=== PATIENT | male | born 1970 | race Caucasian/White ===

== ENCOUNTER 2024-07-31 23:59 | Emergency (ER) | payer BC, SELFPAY ==
[2024-08-01] VITALS: BP 170/100
[2024-08-01 00:39] LABS: ALT (SGPT) 22 U/L (0-50); AST (SGOT) 24 U/L (17-59); Alkaline Phosphatase 118 U/L (38-126); Blood Urea Nitrogen 16 mg/dl (9-20); Calcium 8.2 mg/dl (8.4-10.2); Carbon Dioxide 28 mmol/L (22-30); Chloride 99 mmol/L (98-107); Glucose 111 mg/dl (70-99); Potassium 4.2 mmol/L (3.5-5.1); Sodium 136 mmol/L (135-145); Total Bilirubin 0.3 mg/dl (0.2-1.3); Total Protein 6.8 g/dl (6.3-8.2); eGFR > 60.00
[2024-08-01 00:43] LABS: % Basophils 1.1 % (0-2); % Immature Granulocytes 0.9 % (0-0.5); % Lymphocytes 26.3 % (20.5-51.1); % Monocytes 10.7 % (1.7-9.3); Absolute Basophils 0.1 10^3/uL (0-0.2); Absolute Eosinophils 0.3 10^3/uL (0-0.7); Absolute Immature Granulocytes 0.1 10^3/uL (0-0.05); Absolute Lymphocytes 1.5 10^3/uL (1.2-3.4); Absolute Monocytes 0.6 10^3/uL (0.1-0.6); Mean Corp Hgb Conc. 31.4 g/dL (33.0-37.0); Mean Corpuscular Hgb 23.5 pg (27.0-31.0); Mean Corpuscular Volume 74.8 fL (80.0-94.0); Mean Platelet Volume 10.7 fL (7.4-10.4); Nucleated Red Blood Cells % 0 % (-); Platelet Count 206 10^3/uL (130-400); Red Blood Cell Count 4.68 10^6/uL (4.70-6.10); Red Cell Dist. Width 16.9 % (11.5-14.5); White Blood Cell Count 5.5 10^3/uL (4.8-10.8)
--- NOTE | 2024-08-01 01:54 | ED.GENMED ---
History of Present Illness
General
Chief Complaint: Flank Pain
Source: patient
Exam Limitations: none
Time Seen by Provider: 08/01/24 01:45
Nursing documentation reviewed up to this point in time: agreed with
History of Present Illness
History of Present Illness:
Patient with history of kidney stones, presents to ED secondary to recurrent left flank/back pain with nausea sensation, earlier this evening. Upon arrival to ED, while waiting in the waiting room, patient states that his pain has resolved
completely. In the past, patient has required procedures, secondary to ongoing pain along with signs of kidney stone. Denies fever or chills. Denies trauma. Denies difficulty with urination. Patient's last episode of kidney stones was
approximately 2 years ago.
Past History
Past History
ED Past Medical History: Asthma and Other (varicella, GI bleed. Kidney stones); Negative HTN, Hypercholesterolemia or NIDDM
ED Past Surgical History: Cholecystectomy and Other (Gastric bypass)
Patient has exhibited threatening behavior?: No
Social History
Tobacco: Non-smoker
Alcohol: Occasional
Drug: None
Personal:
Living: with family
Employment: Employed
Family History
Family History: Hypertension; Negative CAD
Review of Systems
Review of Systems
Allergies reviewed?: Yes
All Other Systems: ROS reviewed and negative except as documented in HPI and ROS
Constitutional: Reports no symptoms; Denies fever or chills
ABD/GI: Reports no symptoms
: Reports flank pain
Musculoskeletal: Reports back pain
Skin: Reports no symptoms
Neurological: Reports no symptoms
Phy Exam
Physical Exam
Physical Exam:
Physical Exam
General: no apparent distress, not acutely ill. afebrile
Head: nc/at. eomi
Neck: supple. normal range of motion.
Abdomen: normal bowel sounds. not tender.
Neuro: alert and oriented. no focal neurological deficits
Skin: no rash
Psychiatric: well kept. interactive and cooperative
Extremities: no edema. no calf tenderness.
Course
Orders/Labs/Results
Orders:
Orders
08/01/24 00:14
Complete Blood Count/With Diff Urgent
Comprehensive Metabolic Panel Urgent
Abnormal Lab Results
08/01/24
00:14
RBC 4.68 L 10^6/uL
(4.70-6.10)
Hgb 11.0 L g/dL
(13.0-18.0)
Hct 35.0 L %
(39.0-52.0)
MCV 74.8 L fL
(80.0-94.0)
MCH 23.5 L pg
(27.0-31.0)
MCHC 31.4 L g/dL
(33.0-37.0)
RDW 16.9 H %
(11.5-14.5)
MPV 10.7 H fL
(7.4-10.4)
Abs Immat Gran (auto) 0.1 H 10^3/uL
(0-0.05)
Immature Gran % 0.9 H %
(0-0.5)
Monocytes % 10.7 H %
(1.7-9.3)
Glucose 111 H mg/dl
(70-99)
Calcium 8.2 L mg/dl
(8.4-10.2)
08/01/24 00:14
08/01/24 00:14
Vital Signs
Initial and Last Documented VS:
Initial Vital Signs
Temp Pulse Resp BP Pulse Ox
98.8 F 74 22 170/100 100
08/01/24 00:00 08/01/24 00:00 08/01/24 00:00 08/01/24 00:00 08/01/24 00:00
Last Documented Vital Signs
Temp Pulse Resp BP Pulse Ox
98.8 F 74 22 170/100 100
08/01/24 00:00 08/01/24 00:00 08/01/24 00:00 08/01/24 00:00 08/01/24 00:00
MDM/Problems Addressed
MDM/Problems Addressed:
History and exam concerning for renal colic. Unfortunately while waiting for CT scan, pt informed nursing staff that he was going home, as he did not wish to wait any longer, evleia with resolution of pain. Pt told nursing staff that he will return, if
pain comes back.
*Critical Care Note
Total Time (30-74mins, 75-104mins- exclusive of procedures): Not Applicable
ED Attending Note
-
Portions of this chart may have been created with voice recognition software.� Occasional wrong word or��sound alike� substitutions may have occurred due to the inherent limitations of voice recognition software.
Discharge Plan
Departure
Patient Disposition: Elopement
Date of Disposition: 08/01/24
Time of Disposition: 02:46
Discharge Problem:
Renal colic
Prescriptions:
No Action
albuterol sulfate 1 PUFF HFA aerosol inhaler
2 puff inhalation R Q4HPRN PRN (Reason: sob)
diphenhydramine HCl [Banophen] 25 MG capsule
50 mg PO HSPRN PRN (Reason: insomnia)
oxycodone 5 MG tablet
5 mg PO Q4HPRN PRN (Reason: flank pain) 5 Days Qty: 15 0RF
ondansetron 8 mg tablet,disintegrating
8 mg PO TID PRN (Reason: nausea and vomiting) Qty: 20 0RF
tamsulosin 0.4 mg capsule
0.4 mg PO DAILY Qty: 14 0RF
phenazopyridine 200 mg Tablet
200 mg PO TIDPRN PRN (Reason: dysuria) Qty: 20 0RF
oxycodone 5 mg capsule
5 mg PO Q4H PRN (Reason: pain) Qty: 20 0RF
Interventions
Interventions:
*Risk Screen - Suicide Last Done: 08/01/24 00:00
*General Assessment Last Done: 08/01/24 01:50
*Neglect/Abuse Screening Last Done: 08/01/24 00:00
ED- Fall Risk Assessment Last Done: 08/01/24 01:50
*ED COVID-19 Vaccine History Last Done: 08/01/24 01:50
*Nursing Disposition Last Done: 08/01/24 02:30
DR-Hinsac-Dyqlrhgtnb Assessment Last Done: 08/01/24 01:50
ED-Male Genitourinary Assessment Last Done: 08/01/24 01:50
Discharge Date and Time
Discharge Date/Time: 08/01/24 02:30
Print Language: [place]EN[place]
== END 2024-08-01 02:30 | disposition left against medical advice (07) ==
LOC: EMR 23:59
PROVIDERS: Student in an Organized Health Care Education/Training Program; EMERGENCY PHYSICIAN Emergency Medicine
DX: N23 Unspecified renal colic (principal); R10.9 Unspecified abdominal pain; R11.0 Nausea; Z53.29 Procedure and treatment not carried out because of patient's decision for other reasons; J45.909 Unspecified asthma, uncomplicated; Z87.442 Personal history of urinary calculi; Z90.49 Acquired absence of other specified parts of digestive tract; Z98.84 Bariatric surgery status; Z88.6 Allergy status to analgesic agent
CPT/HCPCS: 99283; 80053; 85025

== ENCOUNTER 2024-09-09 16:17 | Emergency (ER) | payer OTHER, SELFPAY ==
[2024-09-09 16:17] VITALS: BMI 34.1
[2024-09-09 17:00] LABS: % Basophils 0.6 % (0-2); % Eosinophils 0.6 % (0-6); % Immature Granulocytes 0.2 % (0-0.5); % Lymphocytes 9.4 % (20.5-51.1); % Monocytes 15.4 % (1.7-9.3); % Neutrophils 73.8 % (42.2-75.2); Absolute Lymphocytes 0.5 10^3/uL (1.2-3.4); Absolute Monocytes 0.8 10^3/uL (0.1-0.6); Hematocrit 32.9 % (39.0-52.0); Hemoglobin 10.2 g/dL (13.0-18.0); Mean Corpuscular Hgb 23.1 pg (27.0-31.0); Mean Corpuscular Volume 74.4 fL (80.0-94.0); Mean Platelet Volume 10.4 fL (7.4-10.4); Nucleated Red Blood Cells % 0 % (-); Platelet Count 184 10^3/uL (130-400); Red Blood Cell Count 4.42 10^6/uL (4.70-6.10); Red Cell Dist. Width 16.5 % (11.5-14.5); White Blood Cell Count 5.3 10^3/uL (4.8-10.8)
--- NOTE | 2024-09-09 17:09 | EDRN ---
Pts out to nurses station yelling 'he can't breathe'. This RN arrived to bedside where pt was in no acute distress, speaking full sentences and telling this RN a story about how a few years ago he was having a hard time breathing and the only
medication that healed him was toradol. Pts vitals are stable and pt maintaining upright seated position independently. at bedside. Awaiting provider for evaluation.
[2024-09-09 17:12] VITALS: BP 159/84
[2024-09-09 17:26] LABS: Troponin I 0.027 ng/ml
[2024-09-09 17:28] LABS: ALT (SGPT) 22 U/L (0-50); AST (SGOT) 27 U/L (17-59); Alkaline Phosphatase 112 U/L (38-126); Blood Urea Nitrogen 13 mg/dl (9-20); Calcium 7.9 mg/dl (8.4-10.2); Carbon Dioxide 26 mmol/L (22-30); Chloride 99 mmol/L (98-107); Estimated Creatinine Clearance 107 ml/min; Glucose 127 mg/dl (70-99); Potassium 3.9 mmol/L (3.5-5.1); Sodium 133 mmol/L (135-145); Total Bilirubin 0.6 mg/dl (0.2-1.3); Total Protein 6.5 g/dl (6.3-8.2); eGFR > 60.00
[2024-09-09 17:28] LABS: COVID-19 Antigen Negative (Negative)
[2024-09-09] MEDS: NORCO 5/325 1 TABLET PO (17:41)
[2024-09-09] MEDS: DUONEB 3 ML INH (17:41)
[2024-09-09 18:00] VITALS: BP 138/69
--- NOTE | 2024-09-09 18:09 | EDRN ---
Post breathing treatment pt states he feels 'so much better'
--- NOTE | 2024-09-09 18:40 | ED.GENMED ---
History of Present Illness
General
Chief Complaint: Cold/Flu/URI Symptoms
Source: patient
Exam Limitations: none
Time Seen by Provider: 09/09/24 17:17
Nursing documentation reviewed up to this point in time: agreed with
History of Present Illness
History of Present Illness:
Patient to ED with complaint of flu like symptoms. COmplains of SOB, cough, chest pain when coughing, fever. Symptoms started yesterday afternoon. Brought to ED by spouse for dennise.
Past History
Past History
ED Past Medical History: Asthma and Other (varicella, GI bleed. Kidney stones); Negative HTN, Hypercholesterolemia or NIDDM
ED Past Surgical History: Cholecystectomy and Other (Gastric bypass)
Patient has exhibited threatening behavior?: No
Social History
Tobacco: Non-smoker
Alcohol: Occasional
Drug: None
Personal:
Living: with family
Employment: Employed
Family History
Family History: Hypertension; Negative CAD
Review of Systems
Review of Systems
Allergies reviewed?: Yes
All Other Systems: ROS reviewed and negative except as documented in HPI and ROS
Constitutional: Reports fever and fatigue
EENT: Reports no symptoms
Respiratory: Reports cough and trouble breathing
Cardiac: Reports no symptoms
ABD/GI: Reports no symptoms
: Reports no symptoms
Musculoskeletal: Reports no symptoms
Skin: Reports no symptoms
Neurological: Reports no symptoms
Psychiatric: Reports no symptoms
Phy Exam
General Physical Exam
General Presentation: well appearing and mild distress
General age: appears stated age
General Skin: warm and dry
General Habitus: normal
General Mental: alert
General Hydration: appears well hydrated
Cardiovascular Exam
Cardiovascular Exam: regular rate/rhythm and no edema
Pulmonary Exam
Pulmonary Exam: lungs clear and no respiratory distress
Gastrointestinal Exam
Gastrointestinal Exam: non tender and soft
Musculoskeletal Exam
Musculoskeletal Exam: full ROM and neuro vasc intact
Skin Exam
Skin Exam: normal color, warm/dry and no rash
Psychiatric Exam
Psychiatric Exam: normal mood/affect
Course
Orders/Labs/Results
Orders:
Orders
09/09/24 16:21
EKG [Electrocardiogram (*1)] Urgent
Reason for Study: Shortness of Breath
CR Chest - 2 Views Urgent
Comment:
Reason For Exam: SOB
09/09/24 16:22
EKG- Treatment ONCE
09/09/24 16:37
Complete Blood Count/With Diff Urgent
Comprehensive Metabolic Panel Urgent
Troponin I Urgent
09/09/24 16:38
COVID-19 Antigen Urgent
Source: Nasal Swab
Influenza A+B Rapid Molecular Urgent
JEFF Source: Nasal Swab
Specimen Description:
09/09/24 17:36
Hydrocodone 5/APAP 325 [[place] 5/325] 1 tablet PO NOW STA
Ipratropium/Albuterol Sulfate [Duoneb] 3 ml INH R NOW STA
09/09/24 18:36
Oseltamivir Phosphate [Tamiflu] 75 mg PO NOW STA
Abnormal Lab Results
09/09/24
16:37
RBC 4.42 L 10^6/uL
(4.70-6.10)
Hgb 10.2 L g/dL
(13.0-18.0)
Hct 32.9 L %
(39.0-52.0)
MCV 74.4 L fL
(80.0-94.0)
MCH 23.1 L pg
(27.0-31.0)
MCHC 31.0 L g/dL
(33.0-37.0)
RDW 16.5 H %
(11.5-14.5)
Absolute Lymphs (auto) 0.5 L 10^3/uL
(1.2-3.4)
Absolute Monos (auto) 0.8 H 10^3/uL
(0.1-0.6)
Lymphocytes % 9.4 L %
(20.5-51.1)
Monocytes % 15.4 H %
(1.7-9.3)
Sodium 133 L mmol/L
(135-145)
Glucose 127 H mg/dl
(70-99)
Calcium 7.9 L mg/dl
(8.4-10.2)
09/09/24 16:37
09/09/24 16:37
Vital Signs
Initial and Last Documented VS:
Initial Vital Signs
Temp Pulse Resp Pulse Ox
100.1 F 101 19 97
09/09/24 16:19 09/09/24 16:19 09/09/24 16:19 09/09/24 16:19
Last Documented Vital Signs
Temp Pulse Resp BP Pulse Ox
98.4 F 77 16 138/69 99
09/09/24 18:00 09/09/24 18:00 09/09/24 18:38 09/09/24 18:00 09/09/24 18:38
*Radiology
Radiology exam reviewed: radiology read reviewed
*Pulse Oximetry
Patient hypoxic: no
*Critical Care Note
Total Time (30-74mins, 75-104mins- exclusive of procedures): Not Applicable
Update Note
Update Note:
Patient to ED with complaint of flu like symptoms x 24 hours. Influenza A pos. Discussed tamiflu with him and he would prefer to take. Given first dose in ED. VSS, afebrile, LCTA. Given duoneb in ED for complaint of SOB and reports improvement
in his symptoms. Will give rx for albuterol MDI prn. He is discharged home and will follow up with PCP.
ED Attending Note
-
Portions of this chart may have been created with voice recognition software.� Occasional wrong word or��sound alike� substitutions may have occurred due to the inherent limitations of voice recognition software.
Discharge Plan
Departure
Patient Disposition: Home (Routine Discharge)
Date of Disposition: 09/09/24
Time of Disposition: 18:36
Patient with high blood pressure during this ER visit?: No
Condition: Good
Covid-19: Not Applicable
Discharge Problem:
Influenza
Instructions: Fever, Adult (DC), Viral Syndrome (DC), Flu in adults - Discharge instructions
Prescriptions:
New
albuterol sulfate 90 mcg/actuation HFA aerosol inhaler
2 puff inhalation QID PRN (Reason: shortness of breath or wheezing) Qty: 8.5 0RF
oseltamivir [Tamiflu] 75 mg capsule
75 mg PO BID 5 Days Qty: 10 0RF
No Action
albuterol sulfate 1 PUFF HFA aerosol inhaler
2 puff inhalation R Q4HPRN PRN (Reason: sob)
diphenhydramine HCl [Banophen] 25 MG capsule
50 mg PO HSPRN PRN (Reason: insomnia)
oxycodone 5 MG tablet
5 mg PO Q4HPRN PRN (Reason: flank pain) 5 Days Qty: 15 0RF
ondansetron 8 mg tablet,disintegrating
8 mg PO TID PRN (Reason: nausea and vomiting) Qty: 20 0RF
tamsulosin 0.4 mg capsule
0.4 mg PO DAILY Qty: 14 0RF
phenazopyridine 200 mg Tablet
200 mg PO TIDPRN PRN (Reason: dysuria) Qty: 20 0RF
oxycodone 5 mg capsule
5 mg PO Q4H PRN (Reason: pain) Qty: 20 0RF
Referrals:
Amador Askew MD [Family Provider] -
Stand Alone Forms: Return to Work
Interventions
Interventions:
*Risk Screen - Suicide Last Done: 09/09/24 16:20
*General Assessment Last Done: 09/09/24 16:20
*Neglect/Abuse Screening Last Done: 09/09/24 16:20
ED- Fall Risk Assessment Last Done: 09/09/24 16:49
*ED COVID-19 Vaccine History Last Done: 09/09/24 16:20
*Nursing Disposition Last Done: 09/09/24 18:38
ED- Pulmonary Assessment Last Done: 09/09/24 16:49
Discharge Date and Time
Print Language: [place]IZ[place]
[2024-09-09] MEDS: TAMIFLU 75 MG PO (18:41)
== END 2024-09-09 18:43 | disposition home or self-care (01) ==
LOC: EMR 16:17
PROVIDERS: Student in an Organized Health Care Education/Training Program; EMERGENCY PHYSICIAN Emergency Medicine; FAMILY PHYSICIAN Family Medicine
DX: J10.1 Influenza due to other identified influenza virus with other respiratory manifestations (principal); Z11.52 Encounter for screening for COVID-19; J45.909 Unspecified asthma, uncomplicated; Z98.84 Bariatric surgery status; Z90.49 Acquired absence of other specified parts of digestive tract
CPT/HCPCS: 99285; 94640; 71046; 80053; 84484; 85025; 87502; 87811; 93005

== ENCOUNTER 2025-02-11 11:42 | Outpatient (RCR) | payer OTHER, SELFPAY ==
[2025-01-28] MEDS: VENOFER 110 MG IV (12:00)
[2025-01-28 12:37] VITALS: BP 134/76
[2025-01-28 13:10] VITALS: BP 121/71
[2025-02-04] MEDS: VENOFER 110 MG IV (11:01)
[2025-02-04 11:14] VITALS: BP 137/76
[2025-02-04 12:07] VITALS: BP 127/72
[2025-02-11 11:52] VITALS: BP 152/91
[2025-02-11] MEDS: VENOFER 110 MG IV (12:04)
[2025-02-11 13:35] VITALS: BP 135/77
== END 2025-02-14 11:06 | disposition home or self-care (01) ==
LOC: OID 11:42
PROVIDERS: ATTENDING PHYSICIAN Family Medicine
DX: D50.9 Iron deficiency anemia, unspecified (principal); R63.4 Abnormal weight loss; Z98.84 Bariatric surgery status
CPT/HCPCS: 96365; J1756

== ENCOUNTER 2025-02-25 10:55 | Outpatient (RCR) | payer OTHER, SELFPAY ==
[2025-02-18] MEDS: VENOFER 110 MG IV (12:01)
[2025-02-18 12:04] VITALS: BP 153/85
[2025-02-18 13:30] VITALS: BP 129/81
[2025-02-25] MEDS: VENOFER 110 MG IV (11:23)
[2025-02-25 11:26] VITALS: BP 120/78
== END 2025-02-28 11:08 | disposition home or self-care (01) ==
LOC: OID 10:55
PROVIDERS: ATTENDING PHYSICIAN Family Medicine
DX: D50.9 Iron deficiency anemia, unspecified (principal); R63.4 Abnormal weight loss; Z98.84 Bariatric surgery status
CPT/HCPCS: 96365; J1756